=== PATIENT | male | born 1980 | race Caucasian/White ===

== ENCOUNTER 2019-04-07 16:09 | Emergency (ER) | payer MEDICAID, OTHER ==
[~2019-04-07] VITALS: Ht 167.6 cm; Wt 65.0 kg
[2019-04-07] MEDS ORDERED: LORAZEPAM 2MG/ML CPJ IV STA (16:34)
[2019-04-07] MEDS ORDERED: SODIUM CHLORIDE 0.9% 1,000 ML IV ONE (16:34)
[2019-04-07 16:49] LABS: BASOPHILS % 0.1 % (0.0-2.0); HEMOGLOBIN. 13.8 g/dL (14.0-18.0); LYMPHOCYTES % 18.2 % (20.0-50.0); MEAN CORPUSCULAR HEMOGLOBIN 27.5 pg (28.0-32.0); MEAN CORPUSCULAR VOLUME 83.5 fL (80.0-94.0); MEAN PLATELET VOLUME 6.9 fl (7.4-10.4); MONOCYTES % 5.2 % (2.0-8.0); NEUTROPHILS % 76.5 % (40.0-76.0); PLATELET 415 x1000/uL (130-400); RED BLOOD CELL COUNT 5.03 mill/uL (4.7-6.1); RED CELL DISTRIBUTION WIDTH 15.9 % (11.6-14.6)
[2019-04-07 16:50] LABS: CHLORIDE 111 mEq/L (98-107)
[2019-04-07 16:55] LABS: ETHANOL BLOOD < 10 mg/dL
[2019-04-07 17:27] LABS: CLARITY URINE CLEAR (CLEAR); COLOR URINE YELLOW (YELLOW); KETONES URINE NEGATIVE (NEGATIVE); LEUKOCYTE ESTERASE URINE NEGATIVE (NEGATIVE); NITRITE URINE NEGATIVE (NEGATIVE); OCCULT BLOOD URINE NEGATIVE (NEGATIVE); PH URINE 5.5 (4.5-8.0); PROTEIN URINE NEGATIVE (NEGATIVE); SPECIFIC GRAVITY URINE 1.013 (1.005-1.030); UROBILINOGEN URINE 0.2 E.U./dL (0.2-1.0)
[2019-04-07 17:44] LABS: *AMPHETAMINES SCREEN URINE PRESUMTIVE POSITIVE (NEGATIVE); *BARBITURATES SCREEN URINE NEGATIVE (NEGATIVE); *BENZODIAZEPINES SCREEN URINE NEGATIVE (NEGATIVE); *COCAINE SCREEN URINE NEGATIVE (NEGATIVE); METHADONE URINE SCREEN NEGATIVE (NEGATIVE)
[2019-04-07 17:45] LABS: CANNABINOID URINE SCREEN NEGATIVE (NEGATIVE); OPIATES URINE SCREEN NEGATIVE (NEGATIVE); PHENCYCLIDINE URINE SCREEN NEGATIVE (NEGATIVE)
[2019-04-07] MEDS ORDERED: SODIUM CHLORIDE 0.9% 2,000 ML IV ONE (18:43)
[2019-04-07] MEDS ORDERED: LORAZEPAM 2MG/ML CPJ IV ONE ×2 (20:15→21:45)
[2019-04-08] MEDS ORDERED: SODIUM CHLORIDE 0.9% 1,000 ML IV ONE (00:19)
[2019-04-08 03:22] VITALS: BP 127/92
== END 2019-04-08 03:30 | disposition home or self-care (01) ==
LOC: ER 16:09
DX: T43.621A Poisoning by amphetamines, accidental (unintentional), initial encounter (principal); R00.0 Tachycardia, unspecified; Y92.480 Sidewalk as the place of occurrence of the external cause; Z59.0 Homelessness
CPT/HCPCS: 36415; 70450; 71045; 80053; 80305; 80307; 80320; 80329; 81003; 84484; 85025; 93005; 96361; 96374; 96376; 99284; J2060; J7030; G0480

== ENCOUNTER 2020-11-16 15:15 | Emergency (ER) | payer MEDICAID ==
[~2020-11-16] VITALS: Ht 162.6 cm; Wt 70.5 kg
[2020-11-16 16:00] VITALS: BP 152/90
[2020-11-16] MEDS ORDERED: DIAZEPAM 5 MG TABLET PO ONE (17:15)
[2020-11-16] MEDS ORDERED: DIAZEPAM 5 MG TABLET PO NR (20:00)
== END 2020-11-16 19:45 | disposition home or self-care (01) ==
LOC: ER 15:31
DX: F19.159 Other psychoactive substance abuse with psychoactive substance-induced psychotic disorder, unspecified (principal)
CPT/HCPCS: 99283

== ENCOUNTER 2022-01-10 15:16 | Emergency (ER) | payer MEDICAID ==
[~2022-01-10] VITALS: Ht 170.2 cm; Wt 70.0 kg
[2022-01-10] MEDS ORDERED: SODIUM CHLORIDE 0.9% 1,000 ML IV ONE (16:45)
[2022-01-10] MEDS ORDERED: LORAZEPAM 2MG/ML CPJ IV ONE (17:00)
[2022-01-10] MEDS ORDERED: DIPHENHYDRAMINE 50MG/ML VIAL IV ONE (17:15)
[2022-01-10] MEDS ORDERED: HALOPERIDOL LACTATE 5MG/ML VIAL IM ONE (17:15)
[2022-01-10 18:00] VITALS: BP 138/91
== END 2022-01-10 18:10 | disposition home or self-care (01) ==
LOC: ER 15:16
DX: T43.621A Poisoning by amphetamines, accidental (unintentional), initial encounter (principal); G92.8 Other toxic encephalopathy; R00.0 Tachycardia, unspecified; Y92.488 Other paved roadways as the place of occurrence of the external cause
CPT/HCPCS: 93005; 96361; 96372; 96374; 96375; 99284; J1200; J1630; J2060; J7030